=== PATIENT | female | born 1980 | race Hispanic/Latino ===

== ENCOUNTER 2019-10-08 09:05 | Emergency (ER) | payer SELFPAY ==
[2019-10-08] MEDS ORDERED: Acetaminophen 500 MG TAB ONE (10:25)
[2019-10-08] MEDS ORDERED: Ketorolac Tromethamine 60 MG/2 ML VIAL ONE (10:25)
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
== END 2019-10-08 12:13 | disposition home or self-care (01) ==
LOC: ERS 09:05
DX: M54.2 Cervicalgia (principal); M54.6 Pain in thoracic spine; V89.2XXA Person injured in unspecified motor-vehicle accident, traffic, initial encounter
CPT/HCPCS: 71045; 72072; 72100; 72125; 96372; J1885; L0120